=== PATIENT | male | born 1980 | race Caucasian/White ===

== ENCOUNTER 2020-04-30 12:58 | Emergency (ER) | payer BC, SELFPAY ==
[2020-04-30 13:09] VITALS: BP 162/85; PULSE 74; RESP 16; TEMP 36.7; O2SAT 100
--- NOTE | 2020-04-30 13:21 | ED.NAVMDI ---
HPI - Nausea/Vomiting/Diarrhea General Chief complaint: Nausea/Vomiting/Diarrhea Stated complaint: diarrhea/nausea/rectal bleed/jaw tightness/heart Source: patient Mode of arrival: ambulatory Limitations: no limitations History of Present Illness HPI Narrative: 39-year-old male presents to [facility] with multiple complaints. Patient reports that he start approximately 2 weeks ago with diffuse abdominal pains, body aches, nausea, diarrhea, rectal bleeding, irritability, sweating, anxiety, dry mouth and difficulty sleeping. Patient reports that he is having up to 10 diarrhea stools per day. Patient does report history of irritable bowel syndrome. Patient reports that he just does not feel normal. Patient has been taking [id number] Pepto-Bismol with minimal relief. Patient reports that he is scheduled to see a new primary care provider in early May. Patient denies sick contacts. Patient denies recent travel. MD elicited complaint: vomiting, diarrhea and abdominal pain Onset (ago): week(s) (2) Associated nausea: Yes Associated abdominal pain: Yes Location of pain: diffuse Relieving factors: none Related Data Home Medications Medication Instructions Recorded Confirmed bismuth subsalicylate 2 tablet PO Q30-60M PRN 04/30/20 04/30/20 [Pepto-Bismol] nutritional supp - diet aids 1 tablet PO DAILY 04/30/20 04/30/20 [Fiber-Tab] omeprazole 20 mg PO DAILY 04/30/20 04/30/20 Allergies Allergy/AdvReac Type Severity Reaction Status Date / Time No Known Allergies Allergy Verified 04/30/20 13:07 Review of Systems Constitutional: Constitutional: Denies chills, Denies fever(s) and Denies weakness ENT: Denies epistaxis and Denies sore throat Respiratory: Respiratory: Denies cough and Denies dyspnea Gastrointestinal: Gastrointestinal: Reports abdominal pain, Reports diarrhea, Reports nausea and Denies vomiting Musculoskeletal: Musculoskeletal: Denies back pain Neurologic: Denies dizziness and Denies syncope Psychiatric: Psychiatric: Reports anxiety PMFSH Past Medical History Medical History (Updated 04/30/20 @ 15:25 by Diallo Horowitz PA-C) Irritable bowel disease Social History Social History (Updated 04/30/20 @ 13:25 by Reyna Alexis APRN) Smoking status: Former smoker Comments At time of signature, I agree with nursing past medical, surgical, social and family history. There is no relevant family history pertinent to the presenting complaint. Exam Const: General: no acute distress and alert Nutritional Appearance: well nourished Orientation/consciousness: patient oriented x3 Neck: Neck: normal visual inspection and no lymphadenopathy Resp: Effort & Inspection: normal respiratory effort Auscultation: clear to auscultation bilaterally Cardio: Rate: regular rate Rhythm: regular rhythm GI: GI Palp: Yes Soft to palpation and Yes Tenderness to palpation present (GI) (Diffusely) Auscultation: normal bowel sounds Back/Spine/Pelvis: Back: no CVA tenderness Skin: General skin exam: normal color Rashes: no rashes Neuro: General: patient oriented x3 and moves all extremities Speech: normal speech Psych: Appearance: grossly normal Mental Status: mental status grossly normal Affect: normal affect Attitude: cooperative Course Vital Signs Vital signs: Vital Signs Temperature 36.7 C 04/30/20 13:09 Pulse Rate 74 04/30/20 13:09 Respiratory Rate 16 04/30/20 13:09 Blood Pressure 162/85 H 04/30/20 13:09 Pulse Oximetry 100 04/30/20 13:09 Temperature 36.7 C 04/30/20 13:09 Pulse Rate 74 04/30/20 13:09 Respiratory Rate 16 04/30/20 13:09 Blood Pressure 162/85 H 04/30/20 13:09 Pulse Oximetry 100 04/30/20 13:09 Transfer Transfered to: [facility] Transfer rationale: Higher level of care, labs, imaging for complaints of abdominal pain, nausea, diarrhea, rectal bleeding Accepting physician: Tatiana MATA MDM - Nausea/Vomiting/Diarrhea MDM Narrative Medical deci
== END 2020-04-30 13:28 | disposition short-term general hospital (02) ==
PROVIDERS: Emergency Provider Nurse Practitioner Family; PCP Internal Medicine
DX: R19.7 Diarrhea, unspecified (principal); R10.32 Left lower quadrant pain; Z87.891 Personal history of nicotine dependence
CPT/HCPCS: 99212; G0463

== ENCOUNTER 2020-04-30 13:55 | Emergency (ER) | payer BC, SELFPAY ==
--- NOTE | ~2020-04-30 | CT_ITS ---
EXAMINATION: CT abdomen pelvis w con DATE: 04/30/2020 15:03 INDICATION: Abdominal pain. Nausea. TECHNIQUE: Computed tomography (CT) of the abdomen and pelvis was performed with 100 mL Omnipaque 350 intravenous contrast. Automated exposure control and iterative reconstruction technique were employe d. The dose-length product was 406.38 mGy-cm. COMPARISON: None. FINDINGS: A calcified right lung nodule and calcified paraesophageal lymph node are consistent with o ld granulomatous disease. No pleural effusion. The heart size is normal. No pericardial effusion. The liver and gallbladder are normal. Calcifications in the spleen are consistent with old granulomatous disease. The pancreas, adrenal glands, and kidneys are normal. There are no dilated loops of bowel. The appendix is normal. There are no pathologically enlarged lymph nodes. There is no free intraperit raymundo fluid. There is a small umbilical hernia containing fat. There is mild lumbar spondylosis. IMPRESSION: 1. Small umbilical hernia containing fat. Reviewed, dictated and finalized at location A. [employer]
[2020-04-30 14:00] VITALS: BP 166/96; PULSE 74; RESP 16; TEMP 36.4; O2SAT 100
[2020-04-30 14:19] LABS: Basophils Percent Auto 0.4 % (0.2-1.2); Eosinophils Absolute Auto 0.2 K/mm3 (0-0.3); Hematocrit 45.6 % (42.0-52.0); Hemoglobin 15.7 g/dL (14.0-18.0); Immature Granulocyte Absolute 0.04 K/mm3 (0.00-0.031); Immature Granulocyte Percent A 0.5 % (0-0.5); Lymphocytes Percent Auto 24.7 % (18.3-44.2); Mean Corpuscular HGB Conc 34.4 g/dl (32-36); Mean Corpuscular Volume 89.9 fl (80-100); Mean Platelet Volume 10.6 fl (7.4-10.4); Monocytes Absolute Auto 0.5 K/mm3 (0.1-0.6); Monocytes Percent Auto 6.3 % (2.6-8.5); Neutrophils Absolute Auto 5.4 K/mm3 (1.3-6.7); Neutrophils Percent Auto 66.1 % (45.5-73.1); Platelet Count Result 241 k/mm3 (150-375); Red Blood Count 5.07 M/mm3 (4.6-6.20); Red Cell Distribution Width 11.8 % (11.5-14.5); White Blood Count 8.1 K/mm3 (4.5-10.0)
[2020-04-30 14:31] LABS: Alanine Aminotransferase 28 U/L (4-50); Alkaline Phosphatase 64 U/L (38-126); Anion Gap 10 mmol/L (8-16); Aspartate Amino Transferase 29 U/L (17-59); Bilirubin,Total 0.6 mg/dL (0.2-1.3); Blood Urea Nitrogen 13 mg/dL (9-20); Calcium 9.9 mg/dL (8.4-10.2); Carbon Dioxide 27 mmol/L (22-30); Chloride 104 mmol/L (98-107); Estimated CRCL calculation 86 ml/min; Estimated Glomerular Filt Rate > 60; Glucose 115 mg/dL (75-110); Potassium 4.1 mmol/L (3.4-5.0); Sodium 141 mmol/L (137-145)
--- NOTE | 2020-04-30 14:36 | ED.ABDPAIN ---
HPI - Abdominal Pain General Chief Complaint: Abdominal Pain Stated Complaint: diarrhea, abd pain, sweating Time Seen by Provider: 04/30/20 13:57 Source: patient Mode of arrival: ambulatory Limitations: no limitations History of Present Illness HPI narrative: Patient presents with chief complaint of sweating, worsening cramping abdominal pain, diarrhea nausea and occasional vomiting that has been worsening over the past 2 to 3 weeks. Patient reports that he was diagnosed with IBS 10 years ago and generally manages with diet control, Pepto-Bismol and fiber. Patient states over the past few weeks there has not been enough. Patient states his pain is increasing and at times it presents about 30 minutes after he eats. He reports any pain in his symptoms. He reports mild relief with diarrhea. He reports at times when he has a lot of diarrhea he does have some bleeding hemorrhoid but denies any rectal bleeding or hemorrhoids at this time. He reports sometimes with the episodes he will noticed sweating. He reports he is working to establish care with a new primary but his appointment is not until May 26. Patient has not seen a GI specialist in approximately 4 years and at that time he had an EGD and colonoscopy that he reports was clean. Patient has not followed up with a GI specialist since. Related Data Home Medications Medication Instructions Recorded Confirmed bismuth subsalicylate 2 tablet PO Q30-60M PRN 04/30/20 04/30/20 [Pepto-Bismol] nutritional supp - diet aids 1 tablet PO DAILY 04/30/20 04/30/20 [Fiber-Tab] omeprazole 20 mg PO DAILY 04/30/20 04/30/20 Allergies Allergy/AdvReac Type Severity Reaction Status Date / Time No Known Allergies Allergy Verified 04/30/20 13:07 Review of Systems Review of Systems: Narrative: CONSTITUTIONAL: Reports intermittent sweats denies fever EYES: Denies visual changes, redness, or discharge. ENT: Denies rhinorrhea, congestion, sore throat, or otalgia. CARDIOVASCULAR: Denies chest pain, palpitations, or edema. RESPIRATORY: Denies cough or dyspnea. GASTROINTESTINAL: Reports abdominal pain, nausea, diarrhea. Denies rectal bleeding or present vomiting GENITOURINARY: Denies dysuria or hematuria. SKIN: Denies rash or itching. MUSCULOSKELETAL: Denies back pain, joint pain, or myalgia. NEUROLOGIC: Denies headache, numbness, dizziness, or weakness. PSYCHIATRIC: Denies anxiety or depression. [facility] Past Medical History Medical History (Updated 04/30/20 @ 15:25 by Diallo Horowitz PA-C) Irritable bowel disease Social History Social History (Updated 04/30/20 @ 13:25 by Reyna Alexis APRN) Smoking status: Former smoker Exam Narrative: Exam Narrative: GENERAL: Well-appearing, well-nourished, and in no acute distress. HEAD: Normocephalic, atraumatic. EYES: PERRLA and EOMI. ENT: Nares clear, no rhinorrhea or epistaxis. Mucous membranes moist. Oropharynx without tonsillar hypertrophy exudate or other lesions. Bilateral TMs pearly villagomez nonbulging CHEST: Clear to auscultation. No respiratory distress. No wheezes rales or rhonchi HEART: Regular rate and rhythm. No murmur heard. Normal peripheral pulses. ABDOMEN: Soft, tender to palpation left lower quadrant, nondistended, normal active bowel sounds. EXTREMITIES: Normal range of motion. No edema. SKIN: Warm, dry, no rash. NEURO: No focal deficits. Alert and oriented x3. PSYCH: Normal mood and affect. Course Vital Signs Vital signs: Vital Signs Temperature 97.6 F 04/30/20 14:00 Pulse Rate 74 04/30/20 14:00 Respiratory Rate 16 04/30/20 14:00 Blood Pressure 166/96 H 04/30/20 14:00 Pulse Oximetry 100 04/30/20 14:00 Temperature 97.6 F 04/30/20 14:00 Pulse Rate 74 04/30/20 14:00 Respiratory Rate 16 04/30/20 14:00 Blood Pressure 166/96 H 04/30/20 14:00 Pulse Oximetry 100 04/30/20 14:00 MDM - Abdominal Pain MDM Narrative Medical decision making narrative: Patient's vitals, labs labs ar
[2020-04-30] MEDS: ONDANSETRON INJ 4 MG/2 ML VIAL IV PUSH (15:06)
[2020-04-30 15:49] LABS: Add Urine Microscopic? YES; Appearance Urine Clear (Clear); Bacteria Urine Trace /hpf; Bilirubin Urine Negative (Negative); Blood Urine Negative (Negative); Color Urine Straw (Yellow); Glucose Urine UA Negative (Negative); Ketones Urine 1+ mg/dL (Negative); Leukocyte Esterase Ur Negative LEU/UL (Negative); Nitrate Urine Negative (Negative); Protein Urine Negative (Negative); RBC Urine 0-2 /hpf (0-2); Urobilinogen Urine Negative mg/dL (<2.0); WBC Urine 0-3 /hpf
[2020-04-30 15:50] LABS: Specific Grav Ur 1.041 (1.001-1.035)
[2020-04-30 16:45] VITALS: BP 162/90; PULSE 73; RESP 18; O2SAT 100
== END 2020-04-30 16:46 | disposition home or self-care (01) ==
PROVIDERS: Physician Assistant; Emergency Provider Family Medicine
DX: R10.9 Unspecified abdominal pain (principal); K58.9 Irritable bowel syndrome, unspecified; Z87.891 Personal history of nicotine dependence
CPT/HCPCS: 36415; 74177; 80053; 81001; 84443; 85025; 96374; 99284; J2405; Q9967

== ENCOUNTER → 2021-04-08 11:20 | Outpatient (CLI) | payer OTHER, SELFPAY ==
--- NOTE | ~2021-04-08 | CT_ITS ---
EXAMINATION: CT abdomen pelvis wo/w con DATE: 04/08/2021 12:21 INDICATION: Hematuria TECHNIQUE: Computed tomography (CT) of the abdomen and pelvis was performed without and subsequently with 130 cc Omnipaque 350 intravenous contrast. Automated exposure control and iterative reconstructi on technique were employed. Exam dose: 1387.71 mGy-cm total exam DLP. COMPARISON: 04/30/2020 CT abdomen pelvis with IV contrast material FINDINGS: Again noted is old pulmonary and splenic granulomatous disease. The lung bases are clear of infiltrate or consolidation. Normal heart size. No pericardial or pleural effusion. The noncontrast examination reveals an approximately 2.5 mm nonobstructing lower pole left renal calc ulus and approximately 3.5 x 8 mm left renal pelvic calculus. No right renal or left or right uretera l calculi or hydroureteronephrosis. The urinary bladder is unremarkable. The liver, gallbladder, bile ducts, pancreas, pancreatic duct and adrenal glands are unremarkable. No renal space occupying mass lesion. Normal caliber of the abdominal aorta. No intraperitoneal or retroperitoneal or pelvic mass lesion or adenopathy or ascites. The urinary bladder appears normal. Normal appendix. Mild colonic diverticulosis. No bowel obstruction, bowel wall thickening, pneumatosi s or intraperitoneal free air. Small fat-containing umbilical hernia. Included skeletal structures are unremarkable. IMPRESSION: Left nephrolithiasis Reviewed, dictated and finalized at [facility]. Reviewed, dictated and finalized at location B. IMPRESSION: Left nephrolithiasis
[2021-04-08 11:51] LABS: Estimated Glomerular Filt Rate > 60
== END ==
PROVIDERS: PCP Family Medicine; Visit Provider Internal Medicine
DX: R31.9 Hematuria, unspecified (principal); N20.0 Calculus of kidney
CPT/HCPCS: 74178; Q9967